=== PATIENT | female | born 2000 ===

== ENCOUNTER 2020-01-22 21:29 | Emergency (ER) | payer SELFPAY | END 2020-01-23 00:10 | disposition home or self-care (01) | LOC: ERS 21:29 | DX: M54.2 Cervicalgia (principal); M54.9 Dorsalgia, unspecified; M79.10 Myalgia, unspecified site; V49.40XA Driver injured in collision with unspecified motor vehicles in traffic accident, initial encounter | CPT/HCPCS: 99283 ==